=== PATIENT | male | born 1985 | race Caucasian/White ===

== ENCOUNTER 2019-10-14 23:24 | Emergency (ER) | payer MEDICAID ==
[~2019-10-14] VITALS: Ht 157.5 cm; Wt 59.0 kg
[2019-10-15] MEDS ORDERED: ACETAMINOPHEN 325MG TABLET PO ONE (02:15)
[2019-10-15 02:37] LABS: CLARITY URINE CLEAR (CLEAR); COLOR URINE YELLOW (YELLOW); KETONES URINE NEGATIVE (NEGATIVE); LEUKOCYTE ESTERASE URINE NEGATIVE (NEGATIVE); NITRITE URINE NEGATIVE (NEGATIVE); OCCULT BLOOD URINE NEGATIVE (NEGATIVE); PH URINE 6.5 (4.5-8.0); PROTEIN URINE NEGATIVE (NEGATIVE); SPECIFIC GRAVITY URINE 1.003 (1.005-1.030); UROBILINOGEN URINE 0.2 E.U./dL (0.2-1.0)
[2019-10-15 02:40] LABS: CHLORIDE 111 mEq/L (98-107)
[2019-10-15 02:44] LABS: ETHANOL BLOOD 227 mg/dL
[2019-10-15 02:50] LABS: *AMPHETAMINES SCREEN URINE NEGATIVE (NEGATIVE); *BARBITURATES SCREEN URINE NEGATIVE (NEGATIVE); *BENZODIAZEPINES SCREEN URINE NEGATIVE (NEGATIVE)
[2019-10-15 02:51] LABS: *COCAINE SCREEN URINE NEGATIVE (NEGATIVE); CANNABINOID URINE SCREEN NEGATIVE (NEGATIVE); METHADONE URINE SCREEN NEGATIVE (NEGATIVE); OPIATES URINE SCREEN NEGATIVE (NEGATIVE); PHENCYCLIDINE URINE SCREEN NEGATIVE (NEGATIVE)
[2019-10-15 02:54] LABS: BASOPHILS % 1.1 % (0.0-2.0); EOSINOPHILS % 3.3 % (0.0-5.0); HEMOGLOBIN. 16.9 g/dL (14.0-18.0); MEAN CORPUSCULAR HEMOGLOBIN 31.3 pg (28.0-32.0); MEAN CORPUSCULAR VOLUME 90.8 fL (80.0-94.0); MEAN PLATELET VOLUME 8.3 fl (7.4-10.4); NEUTROPHILS % 52.6 % (40.0-76.0); PLATELET 286 x1000/uL (130-400); RED CELL DISTRIBUTION WIDTH 13.2 % (11.6-14.6)
[2019-10-15 14:30] VITALS: BP 104/63
== END 2019-10-15 16:33 | disposition home or self-care (01) ==
LOC: ER 23:24
DX: F10.229 Alcohol dependence with intoxication, unspecified (principal); R45.851 Suicidal ideations; Z98.1 Arthrodesis status; Y90.7 Blood alcohol level of 200-239 mg/100 ml
CPT/HCPCS: 36415; 80053; 80305; 80320; 81003; 85025; 99285; G0480

== ENCOUNTER 2024-02-10 20:31 | Emergency (ER) | payer MEDICAID, OTHER ==
[~2024-02-10] VITALS: Ht 167.6 cm; Wt 73.0 kg
[2024-02-10 20:57] VITALS: TEMP 98.3; O2SAT 94
[2024-02-10 21:29] VITALS: BP 121/84; PULSE 93; RESP 16
[2024-02-10] MEDS: KETOROLAC 30MG/ML VIAL IV ONE (21:29)
[2024-02-10] MEDS ORDERED: NAPR220C61 MT (23:40)
== END 2024-02-11 03:32 | disposition home or self-care (01) ==
LOC: ER 20:31
DX: S89.91XA Unspecified injury of right lower leg, initial encounter (principal); G89.11 Acute pain due to trauma; Z98.890 Other specified postprocedural states; V19.49XA Pedal cycle driver injured in collision with other motor vehicles in traffic accident, initial encounter; Y93.89 Activity, other specified; Y92.89 Other specified places as the place of occurrence of the external cause; Y99.8 Other external cause status
CPT/HCPCS: 73552; 73564; 73590; 96374; 99284; J1885; Z7610; L1830

== ENCOUNTER 2025-04-27 12:40 | Emergency (ER) | payer OTHER, MEDICAID ==
[~2025-04-27] VITALS: Ht 172.7 cm; Wt 65.0 kg
[~2025-04-27 12:40] MED LIST: NAPR220C61 MT
[2025-04-27 12:42] VITALS: O2SAT 99
[2025-04-27] MEDS ORDERED: HYDROCODONE/ACETAMINOPHEN 10/325MG TABLET PO ONE (13:30)
[2025-04-27] MEDS ORDERED: IBUPROFEN 800MG TABLET PO NR (14:30)
[2025-04-27] MEDS: HYDROCODONE/ACETAMINOPHEN 10/325MG TABLET PO SCH (17:01)
[2025-04-27 17:02] VITALS: BP 144/91; PULSE 95; RESP 16; TEMP 36.6; O2SAT 99
[2025-04-27] MEDS: IBUPROFEN 800MG TABLET PO SCH (17:02)
[2025-04-27] MEDS ORDERED: IBUP-2030 MT (17:09)
[2025-04-27] MEDS ORDERED: ACET-2708 MT (17:09)
== END 2025-04-27 17:16 | disposition home or self-care (01) ==
LOC: ER 12:43
DX: S80.01XA Contusion of right knee, initial encounter (principal); V19.9XXA Pedal cyclist (driver) (passenger) injured in unspecified traffic accident, initial encounter; Y93.55 Activity, bike riding; Y92.89 Other specified places as the place of occurrence of the external cause; Y99.8 Other external cause status
CPT/HCPCS: 29505; 73562; 99283